=== PATIENT | male | born 1965 | race Caucasian/White ===

== ENCOUNTER 2023-12-21 13:26 | Emergency (ER) | payer SELFPAY ==
[~2023-12-21] VITALS: Ht 182.9 cm; Wt 91.0 kg
[2023-12-21 13:28] VITALS: O2SAT 100
[2023-12-21] MEDS ORDERED: ACETAMINOPHEN 325MG TABLET PO ONE (14:00)
[2023-12-21] MEDS ORDERED: ACETAMINOPHEN 325MG TABLET PO NR (17:00)
[2023-12-21 17:12] VITALS: BP 125/66; PULSE 72; RESP 16; TEMP 97.9
== END 2023-12-21 17:15 | disposition home or self-care (01) ==
LOC: ER 14:09
DX: J02.9 Acute pharyngitis, unspecified (principal); I10 Essential (primary) hypertension
CPT/HCPCS: 87070; 87430; 99283

== ENCOUNTER 2023-12-25 12:30 | Emergency (ER) | payer MEDICAID ==
[~2023-12-25] VITALS: Ht 175.3 cm; Wt 81.0 kg
[2023-12-25 12:52] VITALS: O2SAT 99
[2023-12-25] MEDS: KETOROLAC 30MG/ML VIAL IM STA (15:15)
[2023-12-25] MEDS ORDERED: NAPR-681 PO (16:01)
[2023-12-25] MEDS ORDERED: AMOX-494 MT (16:01)
[2023-12-25 16:21] VITALS: BP 149/88; PULSE 53; RESP 19; TEMP 98.4
== END 2023-12-25 16:27 | disposition home or self-care (01) ==
LOC: ER 12:30
DX: J02.9 Acute pharyngitis, unspecified (principal); K08.89 Other specified disorders of teeth and supporting structures
CPT/HCPCS: 99283; 87430; 87070; 96372; J1885

== ENCOUNTER 2023-12-28 13:13 | Emergency (ER) | payer MEDICAID ==
[~2023-12-28] VITALS: Ht 167.6 cm; Wt 82.0 kg
[~2023-12-28 13:13] MED LIST: AMOX-494 MT; NAPR-681 PO
[2023-12-28 13:19] VITALS: BP 127/76; PULSE 63; RESP 18; TEMP 98.2; O2SAT 98
[2023-12-28] MEDS: TETRACAINE 0.5% OPHTH DROPS 4ML LEFTEYE ONE (14:15)
[2023-12-28] MEDS ORDERED: FLUORESCEIN SODIUM 1MG/STRIP LEFTEYE ONE (15:00)
[2023-12-28] MEDS ORDERED: CIPR2.5D17 LEFTEYE (16:53)
== END 2023-12-28 17:35 | disposition home or self-care (01) ==
LOC: ER 13:13
DX: S09.90XA Unspecified injury of head, initial encounter (principal); H54.40 Blindness, one eye, unspecified eye; I10 Essential (primary) hypertension; Z79.899 Other long term (current) drug therapy; Y08.89XA Assault by other specified means, initial encounter; Y93.89 Activity, other specified; Y92.89 Other specified places as the place of occurrence of the external cause; Y99.8 Other external cause status
CPT/HCPCS: 70480; 99284; 99285

== ENCOUNTER 2024-03-30 17:31 | Emergency (ER) | payer MEDICAID ==
[~2024-03-30] VITALS: Ht 177.8 cm; Wt 91.0 kg
[~2024-03-30 17:31] MED LIST changes: +CIPR2.5D17 LEFTEYE
[2024-03-30 17:47] VITALS: TEMP 98.5; O2SAT 99
[2024-03-30 17:49] VITALS: O2SAT 98
[2024-03-30 19:16] VITALS: BP 130/90; PULSE 85; RESP 18
[2024-03-30] MEDS: KETOROLAC 30MG/ML VIAL IM ONE (19:16)
[2024-03-30] MEDS ORDERED: IBUP-2029 MT (20:00)
== END 2024-03-30 21:10 | disposition home or self-care (01) ==
LOC: ER 17:31
DX: M54.9 Dorsalgia, unspecified (principal); I10 Essential (primary) hypertension; Z98.890 Other specified postprocedural states; Z79.899 Other long term (current) drug therapy
CPT/HCPCS: 99283; 72070; 96372; J1885